=== PATIENT | female | born 1940 | race Caucasian/White ===

== ENCOUNTER 2016-10-24 14:33 | Inpatient (IN) | payer OTHER ==
[~2016-10-24] VITALS: Ht 157.5 cm; Wt 60.5 kg
--- NOTE | ~2016-10-24 | 2DMMODE ---
[facility] [address] [address] 2 D/M-MODE ECHOCARDIOGRAM Name: ELVAPIERO Room #: 204-P ADM IN M.R.#: [id number] Admission: 10/24/16 Attend Phys: Teresa Willoughby Discharge: Date of : 36 Date of Service: 10/25/16 1444 Report #: [id number] THIS REPORT FOR: //name// APPROVED REPORT Study performed: 10/25/2016 13:06:04 EXAM: Comprehensive 2D, Doppler, and color-flow Echocardiogram Patient Location: Bedside Room #: [facility] Status: routine Other Information Study Quality: Adequate Indications CVA/TIA Echo Enhancing Agent Indication: Rule out Shunt Agent(s) / Amount(s) Used: Agitated Saline cc 2D Dimensions RVDd: 35.15 mm LVEF(%): 74.12 (>50%) IVSd: 11.80 (7-11mm) LVOT Diam: 20.17 (18-24mm) LVDd: 38.39 mm PWd: 9.04 (7-11mm) Ascending Ao: 35.28 (22-36mm) LVDs: 22.12 (25-40mm) Aortic Root: 30.81 mm Hodges's LVEF: 74.12 % Volumes Left Atrial Volume (Systole) Single Plane 4CH: 26.48 mL Single Plane 2CH: 52.29 mL LA ESV Index: 24.00 mL/m2 Aortic Valve AoV Peak Gene.: 1.03 m/s AO Peak Gr.: 4.27 mmHg LVOT Max P.84 mmHg LVOT Max V: 0.98 m/s OJ Vmax: 3.03 cm2 Mitral Valve E/A Ratio: 0.7 MV Decel. Time: 301.87 ms [facility] [place] [address] 2 D/M-MODE ECHOCARDIOGRAM Name: ELVAPIERO Room #: 204-P ADM IN M.R.#: [id number] Admission: 10/24/16 Attend Phys: Teresa Willoughby Discharge: Date of : 36 Date of Service: 10/25/16 1444 Report #: [id number] MV E Max Gene.: 0.63 m/s MV A Gene.: 0.88 m/s MV PHT: 87.54 ms IVRT: 110.73 ms Pulmonary Valve PV Peak Gene.: 0.87 m/s PV Peak Gr.: 3.03 mmHg Pulmonary Vein P Vein S: 0.55 m/s P Vein A: 0.36 m/s P Vein D: 0.36 m/s P Vein S/D Ratio: 1.53 Tricuspid Valve TR Peak Gene.: 2.71 m/s RAP Estimate: 5.00 mmHg TR Peak Gr.: 29.32 mmHg PA Pressure: 34.00 mmHg Left Ventricle The left ventricle is normal size. There is normal LV segmental wall motion. There is normal left ventricular wall thickness. The left ventricular systolic function is normal. The left ventricular ejection fraction is within the normal range. LVEF is 60-65%. Grade I - abnormal relaxation pattern. Right Ventricle The right ventricle is normal size. The right ventricular systolic function is normal. Atria The left atrium size is normal. Injection of bubbles documented no interatrial shunt. The right atrium size is normal. Aortic Valve Aortic valve leaflets are mildly thickened. Mild aortic regurgitation. There is no aortic valvular stenosis. Mitral Valve There is mitral annular calcification. Trace mitral regurgitation. No evidence of mitral valve stenosis. Tricuspid Valve The tricuspid valve is normal in structure. There is trace tricuspid regurgitation. The right atrial pressure is estimated at 5 mmHg. There is mild pulmonary hypertension with an estimated PAP [address] [address] 2 D/M-MODE ECHOCARDIOGRAM Name: PIERO STEVENSON Room #: 204-P [facility] IN ..#: [id number] Admission: 10/24/16 Attend Phys: Teresa Willoughby Discharge: Date of : 36 Date of Service: 10/25/16 1444 Report #: [id number] Pulmonic Valve The pulmonary valve is normal in structure. There is no pulmonic valvular regurgitation. Great Vessels The aortic root is normal in size. The ascending aorta is normal in size. IVC is normal in size and collapses >50% with inspiration. Pericardium There is no pericardial effusion. <Conclusion> The left ventricular ejection fraction is within the normal range. LVEF is 60-65%. There is normal LV segmental wall motion. Grade I diastolic dysfunction. Aortic valve leaflets are mildly thickened, no stenosis. mild aortic regurgitation. There is mitral annular calcification. No mitral regurgitation. Pulmonary artery pressure of 30mmHg No shunting by contrase bubble injection There is no pericardial effusion. <ELECTRONICALLY SIGNED> By: Adam Altamirano MD, FACC 10/25/16 1444 1444 1444 Adam Altamirano MD, FACC /INF
--- NOTE | ~2016-10-24 | EKG ---
[address] [address] ELECTROCARDIOGRAM REPORT Name: PIERO STEVENSON Room #: 204-P ADM IN M.R.#: [id number] Admission: 10/24/16 Attend Phys: Javier Lewis MD Discharge: Date of : 36 Report #: [id number] THIS REPORT FOR: //name// [facility] Test Date: 2016-10-24 Test Time: 18:43:54 Pat Name: PIERO STEVENSON Department: Room: [facility] Gender: F Registered Nurse: Teresa LOWE : 1940 Requested By: Javier Lewis Order Number: [id number] MD: Leonel Chacon Measurements Intervals [place] Rate: 52 P: 60 KS: 155 QRS: 36 QRSD: 98 T: 29 QT: 488 QTc: 454 Interpretive Statements Sinus rhythm No previous ECG available for comparison Electronically Signed On 10-24-2016 21:23:59 CDT by Leonel Chacon [email or web address] <ELECTRONICALLY SIGNED> By: Leonel Chacon MD 10/24/162122 42 1843 MD PRAFUL Connolly
--- NOTE | ~2016-10-24 | EEG ---
[facility] [address] [address] ELECTROENCEPHALOGRAM Name: PIERO STEVENSON Room #: 204-P [facility] IN M.R.#: [id number] Admission: 10/24/16 Attend Phys: Javier Lewis MD Discharge: 10/27/16 Date of : 36 Report #: [id number] THIS REPORT FOR: //name// CC: DENNIS physician/PCP Javier Lewis DATE OF SERVICE: 10/25/2016 This patient is being evaluated for altered mental status. EEG was done by placing the electrodes by standard 10-20 system of electrode placement. Both referential and sequential montages were used for recording. Background activity in this patient's EEG does go up to about 9 Hz and 25 microvolt. It is intermixed with slight theta range slowing even when the patient is awake. This patient goes to sleep and that is associated with bilaterally symmetrical sleep spindle and vertex sharp waves. Throughout the record, no active epileptiform activity was noticed. IMPRESSION: This patient's EEG is intermixed with some theta range slowing on both sides. That is a nonspecific abnormality, which can occur with drowsiness, effect of psychotropic medication, dementia, etc. Finding is rather mild and therefore, clinical correlation is recommended. Thank you very much for this referral. <ELECTRONICALLY SIGNED> By: Berlin Dobbs MD 10/28/16 0639 0749 6 MD caprice Akers
--- NOTE | ~2016-10-24 | H ---
[facility] [place] [address] HISTORY AND PHYSICAL Name: PIERO STEVENSON Room #: 204-P ADM IN M.R.#: [id number] Admission: 10/24/16 Attend Phys: Javier Lewis MD Discharge: Date of : 36 Report #: [id number] THIS REPORT FOR: //name// CC: DENNIS physician/PCP Javier Lewis DATE OF SERVICE: 10/24/2016 SOURCE OF INFORMATION: History was primarily obtained from talking to the ER physician and also to the nursing staff. Unfortunately, family had left the room. HISTORY OF PRESENT ILLNESS: The patient is a 76-year-old female with history of dementia, was brought to the emergency room after a fall. History is very limited from the patient because of her dementia. She is oriented to self. She is not oriented to place or to time. She is able to follow simple commands, but she did mention that she had fallen at least twice over the last 1 month. According to the ER note, the patient fell last night when she was on the floor. The patient was seen by her at around 3:00 a.m. According to the ER report, the patient was incontinent of both stool and urine, and she also vomited once. The patient's daughter reported that they were able to get her into the bed, but the patient could not move her legs. She had weakness in the leg, which prompted them to bring to the emergency room. The patient's speech is not slurred at present. She denies any visual disturbance. PAST MEDICAL HISTORY: Significant for TIA. She also had recent pneumonia and UTI and was admitted at [facility]. History of breast cancer, dementia, CVA, and hip replacement. History of hypothyroidism. PAST SURGICAL HISTORY: Significant for hip replacement. HOME MEDICATIONS: Include levothyroxine, Celexa and Aricept. SOCIAL HISTORY: No smoking, alcohol abuse, or illicit drug abuse. REVIEW OF SYSTEMS: Limited from the patient because of the dementia. FAMILY HISTORY: Unable to obtain because of dementia. PHYSICAL EXAMINATION: VITAL SIGNS: Blood pressure 180/63, heart rate of 65 per minute, afebrile. GENERAL: The patient is awake. She is alert. She follows simple commands. She is oriented to self. She is not in any acute respiratory distress. EYES: Pupils equal and reactive to light. THROAT: She has a very dry oral mucosa. NECK: Supple, no JVD, no bruit, no lymphadenopathy. [facility] [address] [place] [address] HISTORY AND PHYSICAL Name: PIERO STEVENSON Room #: 204-P ADM IN M.R.#: [id number] Admission: 10/24/16 Attend Phys: Javier Lewis MD Discharge: Date of : 36 Report #: [id number] CARDIOVASCULAR: S1, S2, negative S3, no murmur. CHEST: Bilateral air entry present. Clear on auscultation. ABDOMEN: Soft, bowel sounds present, no mass, no organomegaly. There is tenderness in the left lower quadrant, no rebound tenderness. PERIPHERY: No pedal edema. No calf tenderness. Dorsalis pedis 1+ bilaterally. NEUROLOGICAL: No facial asymmetry noted. Pupils are equal and reactive to light. Extraocular movements are intact. Power is 5/5 in upper extremities. She was able to lift her legs off the bed. Power is probably 4/5 in the lower extremity. She has tenderness over the thoracic spine, particularly around T7-T8. SKIN: She has some abrasions over the right knee. LABORATORY DATA: Reviewed. Her UA was significant for positive 3+ ketones, positive protein 2+, blood 0-2 rbc's, 0 wbc, few bacteria. PT, PTT are within normal limit. Chemistry showed a BUN of 15, creatinine of . CPK is 664. White count is , normal hemoglobin and hematocrit, platelets 241. DIAGNOSTIC DATA: She had a CT of the brain done, which showed no acute abnormality. There were white matter changes consistent with chronic small vessel ischemic changes. Chest x-ray showed no acute abnormality. ASSESSMENT AND PLAN: 1. Leg weakness and incontinence. She does have some tenderness over the thoracic spine. I ordered a stat MRI of the thoracic and lumbar spine. We will also get an MRI of the brain to rule out any acute cerebrovascular accident. Neurologist will be consulted. The patient will be placed on frequent neuro check. We will also check on her EKG and AST and ALT levels. 2. Status post fall. I have ordered x-ray of the hips and x-ray of the knee. 3. Hypothyroidism. We will continue levothyroxine. We will check on her TSH level. 4. Dementia. Apparently when she was at [facility], she needed to be on restraint. They have ordered p.r.n. Xanax. May need to add p.r.n. Haldol too. 5. Deep venous thrombosis prophylaxis. SCDs have been ordered for deep venous thrombosis prophylaxis. 6. We will consult physical and occupational therapy and also social service. 7. Mild rhabdomyolysis and slight dehydration. We will continue with IV fluid. We will check a CPK in the morning. 8. She also has some abdominal tenderness. We will continue to monitor. We will get a CT of her abdomen and pelvis. <ELECTRONICALLY SIGNED> By: Javier Lewis MD 10/25/16 3953 1809 1859 Javier Lewis MD /walker
[~2016-10-24 14:33] MED LIST: ARICEPT 5 MG TAB5 MG PO; AUGMENTIN 875-1 EACH PO; TRAMADOL 50 MG50 MG PO
[2016-10-24 14:36] VITALS: BP 162/132
[2016-10-24 15:15] LABS: URINE BLOOD 2+ (Negative); URINE COLOR YELLOW; URINE GLUCOSE-RANDOM* NEGATIVE (Negative); URINE KETONES 3+ (Negative); URINE LEUKOCYTES-REFLEX NEGATIVE (Negative); URINE PROTEIN (DIPSTICK) 1+ (Negative)
[2016-10-24 15:17] LABS: URINE BILIRUBIN NEGATIVE (Negative)
[2016-10-24 15:20] LABS: ABSOLUTE NEUTROPHILS 7.6 thou/uL (1.4-8.2); EOSINOPHILS 0.1 % (0.0-3.0); HEMATOCRIT 41.2 % (37.0-47.0); HEMOGLOBIN 14.1 gm/dL (12.0-15.0); LYMPHOCYTES 17.4 % (24.0-44.0); MANUAL DIFF NO; MCH 31.4 pg (26.0-34.0); MCHC 34.3 g/dL (28.0-37.0); MCV 91.7 fL (80.0-100.0); MONOCYTES 9.6 % (1.0-8.0); PLATELET COUNT 241 thou/uL (150-400); POLYS 71.9 % (36.0-66.0); RDW 12.6 % (10.5-14.5); WBC 10.5 thou/uL (4.0-11.0)
[2016-10-24 15:24] LABS: CASTS None Seen /LPF (None Seen); CRYSTALS None Seen /LPF (None Seen); SQUAMOUS 0-3 Few /LPF (0-3); URINE RBC 0-2 Rare /HPF (0-2); URINE WBC-REFLEX None Seen /HPF (0-5)
[2016-10-24 15:27] LABS: CALCIUM 9.6 mg/dL (8.5-10.1); CREATININE 1.1 mg/dL (0.6-1.0); POTASSIUM 3.8 mmol/L (3.5-5.1)
[2016-10-24 15:37] LABS: PROTIME 10.6 Seconds (9.3-11.4)
[2016-10-24] MEDS ORDERED: LEVOTHYROXIN0.025 MG PO (15:55)
[2016-10-24] MEDS ORDERED: CELEXA20 MG PO (15:56)
[2016-10-24 18:25] LABS: ALBUMIN 3.6 g/dL (3.4-5.0); DIRECT BILIRUBIN 0.2 mg/dL (<0.1-0.3); TOTAL BILIRUBIN 1.2 mg/dL (<0.1-1.0)
[2016-10-24 18:40] VITALS: BP 168/74
[2016-10-24 18:45] VITALS: BP 165/76
[2016-10-24 18:48] LABS: FOLIC ACID 11.7 ng/mL (8.6-58.9)
[2016-10-24 23:51] VITALS: BP 109/55
[2016-10-25 04:53] VITALS: BP 116/87
[2016-10-25 06:21] LABS: ABSOLUTE NEUTROPHILS 3.4 thou/uL (1.4-8.2); BASOPHILS 0.7 % (0.0-2.0); EOSINOPHILS 1.2 % (0.0-3.0); HEMATOCRIT 34.9 % (37.0-47.0); MCH 31.9 pg (26.0-34.0); MCHC 34.5 g/dL (28.0-37.0); MCV 92.5 fL (80.0-100.0); MONOCYTES 10.9 % (1.0-8.0); PLATELET COUNT 212 thou/uL (150-400); POLYS 49.2 % (36.0-66.0); RBC 3.77 mil/uL (4.20-5.00); RDW 12.5 % (10.5-14.5); WBC 6.9 thou/uL (4.0-11.0)
[2016-10-25 06:28] LABS: CALCIUM 8.3 mg/dL (8.5-10.1); CREATININE 0.9 mg/dL (0.6-1.0); POTASSIUM 3.8 mmol/L (3.5-5.1)
[2016-10-25 06:30] LABS: MANUAL DIFF NO
[2016-10-25 06:35] LABS: CHOLESTEROL 161 mg/dL (<200); HDL CHOLESTEROL 59 mg/dL (>40); LDL CHOLESTEROL 91 mg/dL (<100); TC:HDL 2.7 Ratio (Not establshd); TRIGLYCERIDE 57 mg/dL (<150); VLDL 11 mg/dL (<40)
[2016-10-25 07:35] VITALS: BP 134/70
[2016-10-25 12:50] VITALS: BP 149/91
[2016-10-25 15:45] VITALS: BP 159/82
[2016-10-25 19:29] VITALS: BP 122/57
[2016-10-26 03:38] VITALS: BP 138/71
[2016-10-26 04:15] LABS: CALCIUM 8.6 mg/dL (8.5-10.1); MAGNESIUM 1.9 mg/dL (1.8-2.4); POTASSIUM 3.8 mmol/L (3.5-5.1)
[2016-10-26 04:20] LABS: ABSOLUTE NEUTROPHILS 5.9 thou/uL (1.4-8.2); BASOPHILS 0.4 % (0.0-2.0); EOSINOPHILS 1.2 % (0.0-3.0); HEMATOCRIT 37.1 % (37.0-47.0); HEMOGLOBIN 12.7 gm/dL (12.0-15.0); LYMPHOCYTES 12.8 % (24.0-44.0); MCH 31.4 pg (26.0-34.0); MCHC 34.2 g/dL (28.0-37.0); MCV 91.9 fL (80.0-100.0); MONOCYTES 10.1 % (1.0-8.0); PLATELET COUNT 217 thou/uL (150-400); POLYS 75.5 % (36.0-66.0); RBC 4.03 mil/uL (4.20-5.00); RDW 12.5 % (10.5-14.5); WBC 7.8 thou/uL (4.0-11.0)
[2016-10-26 04:38] LABS: MANUAL DIFF NO
[2016-10-26 05:10] LABS: GLYCOHEMOGLOBIN (HGB A1C) 5.2 % (4.8-5.6)
[2016-10-26 08:00] VITALS: BP 170/82
[2016-10-26 11:29] VITALS: BP 165/90
[2016-10-26 20:35] VITALS: BP 136/72
[2016-10-27 03:23] VITALS: BP 153/72
[2016-10-27 08:15] VITALS: BP 129/75
[2016-10-27] MEDS ORDERED: ADULT LOW DOSE81 MG PO (11:33)
[2016-10-27] MEDS ORDERED: AUGMENTIN 500-1 EACH PO (11:33)
[2016-10-27] MEDS ORDERED: LEVOTHYROXINE0.05 MG PO (11:33)
[2016-10-27] MEDS ORDERED: FLAGYL500 MG PO (11:33)
[2016-10-27] MEDS ORDERED: VITAMIN B-12500 MCG PO (11:33)
[2016-10-27 11:34] VITALS: BP 180/78
[2016-10-27 14:12] LABS: ALPHA TOCOPHEROL 10.5 mg/L (6.5-21.5)
== END 2016-10-27 16:39 | DRG 884 ==
LOC: ER 14:33 → EROBS 17:38 → 2N 17:38
PROVIDERS: Emergency Medicine; Internal Medicine; Psychiatry & Neurology Neurology
DX: F03.90 Unspecified dementia, unspecified severity, without behavioral disturbance, psychotic disturbance, mood disturbance, and anxiety (principal); K57.32 Diverticulitis of large intestine without perforation or abscess without bleeding; R53.1 Weakness; E86.0 Dehydration; E03.9 Hypothyroidism, unspecified; G30.9 Alzheimer's disease, unspecified; Z96.649 Presence of unspecified artificial hip joint; T79.6XXA Traumatic ischemia of muscle, initial encounter; W18.39XA Other fall on same level, initial encounter; Y93.89 Activity, other specified; Y92.89 Other specified places as the place of occurrence of the external cause; Z87.440 Personal history of urinary (tract) infections; Z87.01 Personal history of pneumonia (recurrent); Z85.3 Personal history of malignant neoplasm of breast; Y99.8 Other external cause status
CPT/HCPCS: 10081

== ENCOUNTER 2016-12-06 23:14 | Emergency (ER) | payer OTHER ==
[~2016-12-06] VITALS: Ht 157.5 cm; Wt 60.2 kg
--- NOTE | ~2016-12-06 | EKG ---
[place] [address] [facility] [place] [address] ELECTROCARDIOGRAM REPORT Name: PIERO STEVENSON [id number] Admission: 12/06/16 Attend Phys: Discharge: 12/07/16 Date of : 36 Report #: [id number] THIS REPORT FOR: //name// [facility] ED Test Date: 2016-12-06 Test Time: 23:59:37 Pat Name: PIERO STEVENSON Department: Room: Gender: F [employer]: TIMMY : 1940 Requested By: Connie Garber Order Number: [id number] MD: Adam Altamirano Measurements Intervals [place] Rate: 67 P: 41 [place]: 156 QRS: 48 QRSD: 98 T: 41 QT: 426 QTc: 450 Interpretive Statements Sinus rhythm Baseline wander in lead(s) I,III,aVR,aVL Compared to ECG 10/24/2016 18:43:54 No significant changes Electronically Signed On 12-07-2016 8:25:16 CDT by Adam Altamirano [email or web address] <ELECTRONICALLY SIGNED> By: Adam Altamirano MD, [facility] 12/07/16 0825 2359 58 Adam Altamirano MD, [facility] /EPI
[~2016-12-06 23:14] MED LIST changes: +ADULT LOW DOSE81 MG PO; +AUGMENTIN 500-1 EACH PO; +CELEXA20 MG PO; +FLAGYL500 MG PO; +LEVOTHYROXIN0.025 MG PO; +LEVOTHYROXINE0.05 MG PO; +VITAMIN B-12500 MCG PO
[2016-12-06 23:39] LABS: ABSOLUTE NEUTROPHILS 7.7 thou/uL (1.4-8.2); BASOPHILS 0.5 % (0.0-2.0); HEMATOCRIT 42.1 % (37.0-47.0); HEMOGLOBIN 14.2 gm/dL (12.0-15.0); LYMPHOCYTES 22.5 % (24.0-44.0); MCH 31.3 pg (26.0-34.0); MCHC 33.6 g/dL (28.0-37.0); MCV 93.2 fL (80.0-100.0); MONOCYTES 5.4 % (1.0-8.0); PLATELET COUNT 268 thou/uL (150-400); POLYS 71.6 % (36.0-66.0); RBC 4.52 mil/uL (4.20-5.00); RDW 13.6 % (10.5-14.5); WBC 10.7 thou/uL (4.0-11.0)
[2016-12-06 23:40] LABS: MANUAL DIFF NO
[2016-12-06 23:47] LABS: ANION GAP 11 mmol/L (7-16); BUN 12 mg/dL (7-18); CALCIUM 9.5 mg/dL (8.5-10.1); CHLORIDE 101 mmol/L (98-107); CO2 27 mmol/L (21-32); CREATININE 1.2 mg/dL (0.6-1.0); GLUCOSE 146 mg/dL (74-106); POTASSIUM 3.9 mmol/L (3.5-5.1); SODIUM 139 mmol/L (136-145)
[2016-12-06 23:53] LABS: PROTIME 10.6 Seconds (9.3-11.4)
[2016-12-06 23:55] LABS: TROPONIN-I < 0.04 ng/mL (<0.04-0.07)
[2016-12-07] MEDS ORDERED: ONDANSETRON HCL4 M2 PO (00:46)
[2016-12-07] MEDS ORDERED: UNICOMPLEX M TA1 TA1 PO (00:47)
[2016-12-07] MEDS ORDERED: BISACODYL SUPP10 MG RECTAL (00:47)
[2016-12-07] MEDS ORDERED: PROBIOTIC1 EAC1 PO (00:47)
[2016-12-07] MEDS ORDERED: COLACE100 MG PO (00:47)
[2016-12-07] MEDS ORDERED: MIRALAX255 GM PO (00:48)
== END 2016-12-07 01:06 | disposition short-term general hospital (02) ==
LOC: ER 23:14
PROVIDERS: Emergency Medicine
DX: I62.9 Nontraumatic intracranial hemorrhage, unspecified (principal); G30.9 Alzheimer's disease, unspecified; Z86.73 Personal history of transient ischemic attack (TIA), and cerebral infarction without residual deficits; Z85.3 Personal history of malignant neoplasm of breast; Z96.649 Presence of unspecified artificial hip joint; Z79.82 Long term (current) use of aspirin